=== PATIENT | male | born 1990 | race Caucasian/White ===

== ENCOUNTER 2024-06-11 09:05 | Emergency (ER) | payer OTHER ==
[~2024-06-11] VITALS: Ht 177.8 cm; Wt 171.5 kg
[2024-06-11 10:36] VITALS: BP 165/92
== END 2024-06-11 12:23 | disposition home or self-care (01) ==
LOC: ER 09:05
DX: S99.822A Other specified injuries of left foot, initial encounter (principal); X58.XXXA Exposure to other specified factors, initial encounter; R25.2 Cramp and spasm
CPT/HCPCS: 73620; 99283-25